=== PATIENT | female | born 1950 | race Caucasian/White ===

== ENCOUNTER 2021-07-28 19:12 | Inpatient (IN) | payer MEDICARE ==
[2021-07-28 19:40] LABS: #Monocytes 0.5 10x3/uL (0.0-1.1); #Neutrophils 8.1 10x3/uL (1.5-8.4); %Basophils 0.3 % (0.0-2.0); %Eosinophils 0.1 % (0.0-6.0); %Lymphocytes 6.1 % (18.0-47.0); %Monocytes 5.2 % (0.0-10.0); %Neutrophils 88.1 % (40.0-75.0); Hemoglobin 13.3 g/dL (12.0-15.5); Mean Corpuscular HGB CONC 33.7 g/dL (32.0-36.0); Mean Corpuscular Hemoglobin 32.2 pg (27.0-33.0); Mean Corpuscular Volume 95.6 fl (81.6-98.3); Mean Platelet Volume 10.3 fl (7.4-10.4); Platelet Count 285 10x3/uL (150-450); RBC Distribution Width 12.7 % (11.5-14.5); Red Blood Cell (RBC) Count 4.13 10x6/uL (3.90-5.03); White Blood Cell (WBC) Count 9.2 10x3/uL (3.5-10.5)
[2021-07-28] MEDS ORDERED: levETIRAcetam in NS 200 ML ONE (19:46)
[2021-07-28] MEDS ORDERED: Fentanyl 100 MCG/2 ML VIAL ONE (19:46)
[2021-07-28] MEDS ORDERED: Ondansetron PF 4 MG/2 ML Vial ONE (19:46)
[2021-07-28 19:50] LABS: ALT (SGPT) 11 U/L (8-55); AST (SGOT) 21 U/L (5-34); Albumin 4.6 g/dL (3.4-4.8); Alkaline Phosphatase 79 U/L (40-110); Anion Gap 17 mmol/L (10-20); BUN (Urea Nitrogen) 10 mg/dL (9.8-20.1); Bilirubin, Total 0.4 mg/dL (0.2-1.2); Calc. Creatinine Clearance 0 mL/min (70-130); Calcium 9.5 mg/dL (7.8-10.44); Carbon Dioxide 24 mmol/L (23-31); Chloride 96 mmol/L (98-107); Globulin 3.3 g/dL (2.4-3.5); Glucose 137 mg/dL (83-110); Potassium 3.6 mmol/L (3.5-5.1); Protein, Total 7.9 g/dL (5.8-8.1); Sodium 133 mmol/L (136-145)
[2021-07-28] MEDS ORDERED: Lidocaine 1% w/Epinephrine 1:100K 20 ML VIAL ONE (21:26)
[2021-07-28] MEDS ORDERED: Bacitracin 1 PK ONE (21:26)
[2021-07-28] MEDS ORDERED: diphenhydrAMINE 50 MG/ML VIAL ONE (22:10)
[2021-07-28] MEDS ORDERED: Metoclopramide HCl 10 MG/2 ML VIAL ONE (22:11)
[2021-07-28] MEDS ORDERED: Lorazepam 2 MG/ML VIAL ONE (23:10)
[2021-07-28] MEDS ORDERED: Ondansetron PF 4 MG/2 ML Vial IVP PRN (23:49)
[2021-07-28] MEDS ORDERED: Acetaminophen 650 MG Suppository PR PRN (23:49)
[2021-07-28] MEDS ORDERED: Lorazepam 2 MG/ML VIAL SLOW IVP PRN (23:50)
[2021-07-29 00:52] LABS: SARS-CoV-2 NAA Rapid Test Not Detected (NotDetected)
[2021-07-29] MEDS: Dextrose 5 % And 0.9 % NaCl 1,000 ML IV SCH ×2 (01:45→12:13)
[2021-07-29] MEDS: Potassium Chloride 20 MEQ in Premix Bag 1 BAG IVPB SCH ×2 (02:40→05:37)
[2021-07-29] MEDS: Thiamine HCl 200 MG/2 ML VIAL SLOW IVP SCH (02:43)
[2021-07-29 05:12] LABS: #Monocytes 0.9 10x3/uL (0.0-1.1); #Neutrophils 6.9 10x3/uL (1.5-8.4); %Basophils 0.2 % (0.0-2.0); %Eosinophils 0.1 % (0.0-6.0); %Lymphocytes 8.8 % (18.0-47.0); %Monocytes 10.9 % (0.0-10.0); %Neutrophils 79.9 % (40.0-75.0); Hemoglobin 11.9 g/dL (12.0-15.5); Mean Corpuscular HGB CONC 34.6 g/dL (32.0-36.0); Mean Corpuscular Hemoglobin 32.2 pg (27.0-33.0); Mean Corpuscular Volume 93.2 fl (81.6-98.3); Mean Platelet Volume 10.4 fl (7.4-10.4); Platelet Count 250 10x3/uL (150-450); RBC Distribution Width 12.7 % (11.5-14.5); Red Blood Cell (RBC) Count 3.69 10x6/uL (3.90-5.03); White Blood Cell (WBC) Count 8.6 10x3/uL (3.5-10.5)
[2021-07-29 05:40] VITALS: BMI 24.4
[2021-07-29 05:59] LABS: Anion Gap 13 mmol/L (10-20); BUN (Urea Nitrogen) 10 mg/dL (9.8-20.1); CK (CPK) 319 U/L (29-168); Calc. Creatinine Clearance 74 mL/min (70-130); Calcium 9.1 mg/dL (7.8-10.44); Carbon Dioxide 24 mmol/L (23-31); Chloride 102 mmol/L (98-107); Glucose 112 mg/dL (83-110); Magnesium 2.1 mg/dL (1.6-2.6); Sodium 135 mmol/L (136-145)
[2021-07-29] MEDS: Enoxaparin Sodium 40 MG/0.4 ML SYRINGE SC SCH (08:50)
[2021-07-29] MEDS: Famotidine/PF 20 mg/2ml Vial SLOW IVP SCH ×2 (08:50→20:35)
[2021-07-29] MEDS: OXcarbazepine 300 MG TAB PO SCH ×2 (08:51→20:35)
[2021-07-29] MEDS: Folic Acid 1 MG TAB PO SCH (08:51)
[2021-07-29] MEDS ORDERED: levETIRAcetam 500 MG in Sodium Chloride 0.9% 100 ML IVPB SCH (09:00)
[2021-07-29] MEDS ORDERED: Dextrose 5 % And 0.9 % NaCl 1,000 ML IV SCH (14:13)
[2021-07-29 15:17] LABS: Bilirubin Neg (Negative); Blood, Urine 10 (Negative); Clarity Clear (Clear); Glucose, Urine (Dipstick) Normal (Negative); Ketone, Urine 15 mg/dL (Negative); Leukocyte Negative (Negative); Nitrite Negative (Negative); Protein, Urine (Dipstick) 30 mg/dl (Neg-Trace); Specific Gravity, Urine 1.015 (1.002-1.036); Urobilinogen Normal mg/dL (Less than 2)
[2021-07-29 15:25] LABS: WBC/HPF 0-3 HPF (0-3)
[2021-07-29 15:26] LABS: Bacteria/HPF None Seen HPF (None Seen)
[2021-07-29] MEDS ORDERED: Magnevist 469MG/ML 20 ML VIAL ONE (15:34)
[2021-07-29] MEDS ORDERED: levETIRAcetam 500 MG/5 ML VIAL SLOW IVP SCH (18:00)
[2021-07-29] MEDS: levETIRAcetam in NS 1,000 MG in Premix Bag 1 BAG IVPB SCH (20:35)
[2021-07-30] MEDS: Thiamine HCl 200 MG/2 ML VIAL SLOW IVP SCH (03:15)
[2021-07-30 04:31] LABS: Anion Gap 14 mmol/L (10-20); BUN (Urea Nitrogen) 9 mg/dL (9.8-20.1); CK (CPK) 543 U/L (29-168); Calc. Creatinine Clearance 79 mL/min (70-130); Calcium 8.9 mg/dL (7.8-10.44); Carbon Dioxide 25 mmol/L (23-31); Chloride 103 mmol/L (98-107); Glucose 101 mg/dL (83-110); Magnesium 2.1 mg/dL (1.6-2.6); Potassium 4.1 mmol/L (3.5-5.1); Sodium 138 mmol/L (136-145)
[2021-07-30] MEDS: Levothyroxine Sodium 25 MCG TAB PO SCH (06:18)
[2021-07-30] MEDS: Famotidine/PF 20 mg/2ml Vial SLOW IVP SCH ×2 (09:07→21:21)
[2021-07-30] MEDS: levETIRAcetam in NS 1,000 MG in Premix Bag 1 BAG IVPB SCH ×2 (09:07→21:21)
[2021-07-30] MEDS: Folic Acid 1 MG TAB PO SCH (09:08)
[2021-07-30] MEDS: PARoxetine 20 MG TAB PO SCH (09:08)
[2021-07-30] MEDS: OXcarbazepine 300 MG TAB PO SCH ×2 (09:08→21:21)
[2021-07-30] MEDS: Cholecalciferol 1,000 UNITS (25 MCG) TAB PO SCH (09:09)
[2021-07-30] MEDS: Enoxaparin Sodium 40 MG/0.4 ML SYRINGE SC SCH (09:09)
[2021-07-30] MEDS ORDERED: hydrALAZINE 20 MG/ML VIAL SLOW IVP PRN (18:27)
[2021-07-30] MEDS ORDERED: Amlodipine 5 MG TAB PO SCH (18:30)
[2021-07-31] MEDS: Acetaminophen 325 MG TAB PO PRN (00:19)
[2021-07-31] MEDS ORDERED: traMADol HCl 50 MG TAB PO SCH (01:45)
[2021-07-31] MEDS: Thiamine HCl 200 MG/2 ML VIAL SLOW IVP SCH (03:25)
[2021-07-31 03:58] LABS: #Eosinphils 0.2 10x3/uL (0.0-0.5); #Monocytes 0.6 10x3/uL (0.0-1.1); #Neutrophils 3.1 10x3/uL (1.5-8.4); %Basophils 0.6 % (0.0-2.0); %Eosinophils 2.9 % (0.0-6.0); %Lymphocytes 24.4 % (18.0-47.0); %Monocytes 12.2 % (0.0-10.0); %Neutrophils 59.7 % (40.0-75.0); Hemoglobin 11.8 g/dL (12.0-15.5); Mean Corpuscular HGB CONC 34.4 g/dL (32.0-36.0); Mean Corpuscular Hemoglobin 32.5 pg (27.0-33.0); Mean Corpuscular Volume 94.5 fl (81.6-98.3); Mean Platelet Volume 10.3 fl (7.4-10.4); Platelet Count 235 10x3/uL (150-450); RBC Distribution Width 12.8 % (11.5-14.5); Red Blood Cell (RBC) Count 3.63 10x6/uL (3.90-5.03); White Blood Cell (WBC) Count 5.2 10x3/uL (3.5-10.5)
[2021-07-31 04:06] LABS: ALT (SGPT) 20 U/L (8-55); AST (SGOT) 30 U/L (5-34); Albumin 3.8 g/dL (3.4-4.8); Alkaline Phosphatase 63 U/L (40-110); Anion Gap 12 mmol/L (10-20); BUN (Urea Nitrogen) 10 mg/dL (9.8-20.1); Bilirubin, Total 0.4 mg/dL (0.2-1.2); Calc. Creatinine Clearance 79 mL/min (70-130); Calcium 9.1 mg/dL (7.8-10.44); Carbon Dioxide 27 mmol/L (23-31); Chloride 104 mmol/L (98-107); Globulin 2.7 g/dL (2.4-3.5); Glucose 105 mg/dL (83-110); Magnesium 1.9 mg/dL (1.6-2.6); Potassium 3.8 mmol/L (3.5-5.1); Protein, Total 6.5 g/dL (5.8-8.1); Sodium 139 mmol/L (136-145)
[2021-07-31] MEDS: Levothyroxine Sodium 25 MCG TAB PO SCH (06:26)
[2021-07-31] MEDS ORDERED: Morphine 2 MG/ML VIAL SLOW IVP SCH (06:45)
[2021-07-31] MEDS ORDERED: Cholecalciferol 1,000 UNITS (25 MCG) TAB ONE ×2 (07:58→07:59)
[2021-07-31] MEDS: OXcarbazepine 300 MG TAB PO SCH ×2 (08:30→21:08)
[2021-07-31] MEDS: Enoxaparin Sodium 40 MG/0.4 ML SYRINGE SC SCH (08:30)
[2021-07-31] MEDS: levETIRAcetam in NS 1,000 MG in Premix Bag 1 BAG IVPB SCH ×2 (08:30→21:07)
[2021-07-31] MEDS: Amlodipine 5 MG TAB PO SCH (08:31)
[2021-07-31] MEDS: PARoxetine 20 MG TAB PO SCH (08:31)
[2021-07-31] MEDS: Folic Acid 1 MG TAB PO SCH (08:31)
[2021-07-31] MEDS: Famotidine/PF 20 mg/2ml Vial SLOW IVP SCH ×2 (08:31→21:07)
[2021-07-31] MEDS: Cholecalciferol 1,000 UNITS (25 MCG) TAB PO SCH (08:32)
[2021-08-01] MEDS: Thiamine HCl 200 MG/2 ML VIAL SLOW IVP SCH (04:15)
[2021-08-01] MEDS: Acetaminophen 325 MG TAB PO PRN (04:16)
[2021-08-01 05:32] LABS: #Eosinphils 0.2 10x3/uL (0.0-0.5); #Monocytes 0.7 10x3/uL (0.0-1.1); #Neutrophils 3.8 10x3/uL (1.5-8.4); %Basophils 0.7 % (0.0-2.0); %Eosinophils 3.5 % (0.0-6.0); %Lymphocytes 18.3 % (18.0-47.0); %Monocytes 11.5 % (0.0-10.0); %Neutrophils 65.8 % (40.0-75.0); Hemoglobin 11.5 g/dL (12.0-15.5); Mean Corpuscular HGB CONC 33.3 g/dL (32.0-36.0); Mean Corpuscular Hemoglobin 32.4 pg (27.0-33.0); Mean Corpuscular Volume 97.2 fl (81.6-98.3); Mean Platelet Volume 10.7 fl (7.4-10.4); Platelet Count 239 10x3/uL (150-450); RBC Distribution Width 12.8 % (11.5-14.5); Red Blood Cell (RBC) Count 3.55 10x6/uL (3.90-5.03); White Blood Cell (WBC) Count 5.7 10x3/uL (3.5-10.5)
[2021-08-01 05:40] LABS: ALT (SGPT) 24 U/L (8-55); AST (SGOT) 27 U/L (5-34); Albumin 3.8 g/dL (3.4-4.8); Alkaline Phosphatase 63 U/L (40-110); Anion Gap 13 mmol/L (10-20); BUN (Urea Nitrogen) 16 mg/dL (9.8-20.1); Bilirubin, Total 0.2 mg/dL (0.2-1.2); Calc. Creatinine Clearance 77 mL/min (70-130); Calcium 9.5 mg/dL (7.8-10.44); Carbon Dioxide 29 mmol/L (23-31); Chloride 102 mmol/L (98-107); Globulin 2.8 g/dL (2.4-3.5); Glucose 103 mg/dL (83-110); Magnesium 1.9 mg/dL (1.6-2.6); Potassium 4.3 mmol/L (3.5-5.1); Protein, Total 6.6 g/dL (5.8-8.1); Sodium 140 mmol/L (136-145)
[2021-08-01] MEDS: Levothyroxine Sodium 25 MCG TAB PO SCH (06:32)
[2021-08-01] MEDS ORDERED: levETIRAcetam 500 MG TAB PO SCH (09:00)
[2021-08-01] MEDS: Amlodipine 5 MG TAB PO SCH (09:34)
[2021-08-01] MEDS: OXcarbazepine 300 MG TAB PO SCH (09:35)
[2021-08-01] MEDS: Cholecalciferol 1,000 UNITS (25 MCG) TAB PO SCH (09:35)
[2021-08-01] MEDS: PARoxetine 20 MG TAB PO SCH (09:36)
[2021-08-01] MEDS: Enoxaparin Sodium 40 MG/0.4 ML SYRINGE SC SCH (09:37)
[2021-08-01] MEDS: Famotidine/PF 20 mg/2ml Vial SLOW IVP SCH (09:38)
[2021-08-01] MEDS: Folic Acid 1 MG TAB PO SCH (09:39)
[2021-08-01 16:50] VITALS: BP 124/59; TEMP 97.2
[2021-08-01] MEDS ORDERED: Melatonin 3 MG TAB PO SCH (21:00)
== END 2021-08-01 16:10 | disposition short-term general hospital (02) | DRG 101 ==
LOC: CSHERS 19:12 → CSHICU 23:49 → UNDOADMIN 07-29 01:46 → CSHICU 07-29 01:46 → CSHTELE 07-31 15:14
PROVIDERS: ADMIT Student in an Organized Health Care Education/Training Program; ATTEND Family Medicine
PROC: 0HQ0XZZ Repair Scalp Skin, External Approach (ICD-10-PCS; principal; 2021-07-28)
DX: G40.909 Epilepsy, unspecified, not intractable, without status epilepticus (principal); M35.07 Sjogren syndrome with central nervous system involvement; K21.9 Gastro-esophageal reflux disease without esophagitis; Z20.822 Contact with and (suspected) exposure to COVID-19; E03.9 Hypothyroidism, unspecified; W19.XXXA Unspecified fall, initial encounter; E78.5 Hyperlipidemia, unspecified; M47.816 Spondylosis without myelopathy or radiculopathy, lumbar region; I10 Essential (primary) hypertension; M47.812 Spondylosis without myelopathy or radiculopathy, cervical region; F41.9 Anxiety disorder, unspecified; F32.A Depression, unspecified; S01.01XA Laceration without foreign body of scalp, initial encounter; Z72.89 Other problems related to lifestyle; Z90.49 Acquired absence of other specified parts of digestive tract; Z90.710 Acquired absence of both cervix and uterus
CPT/HCPCS: 36415; 70450; 70553; 71045; 72125; 72128; 72131; 80048; 80053; 81001; 82550; 83735; 84443; 85025; 93005; 94760; 96365; 96375; A9579; J1200; J1650; J1953; J2060; J2270; J2405; J2765; J3010; J3411; J3480; J3490; J7042; S0028; U0002

== ENCOUNTER 2022-06-29 16:52 | Observation (INO) | payer MEDICARE ==
[2022-06-29 17:43] LABS: #Monocytes 0.9 10x3/uL (0.0-1.1); #Neutrophils 5.6 10x3/uL (1.5-8.4); %Basophils 0.4 % (0.0-2.0); %Eosinophils 0.4 % (0.0-6.0); %Lymphocytes 19.1 % (18.0-47.0); %Monocytes 10.9 % (0.0-10.0); Hemoglobin 13.8 g/dL (12.0-15.5); Mean Corpuscular HGB CONC 31.9 g/dL (32.0-36.0); Mean Corpuscular Hemoglobin 31.6 pg (27.0-33.0); Mean Corpuscular Volume 98.9 fl (81.6-98.3); Mean Platelet Volume 10.6 fl (7.4-10.4); Platelet Count 313 10x3/uL (150-450); RBC Distribution Width 12.4 % (11.5-14.5); Red Blood Cell (RBC) Count 4.37 10x6/uL (3.90-5.03); White Blood Cell (WBC) Count 8.2 10x3/uL (3.5-10.5)
[2022-06-29 17:48] LABS: ALT (SGPT) 30 U/L (8-55); AST (SGOT) 35 U/L (5-34); Albumin 5.3 g/dL (3.4-4.8); Alkaline Phosphatase 106 U/L (40-110); Anion Gap 29 mmol/L (10-20); BUN (Urea Nitrogen) 8 mg/dL (9.8-20.1); Bilirubin, Total 0.5 mg/dL (0.2-1.2); Calc. Creatinine Clearance 0 mL/min (70-130); Calcium 9.9 mg/dL (7.8-10.44); Carbon Dioxide 12 mmol/L (23-31); Chloride 92 mmol/L (98-107); Estimated GFR 73; Globulin 3.8 g/dL (2.4-3.5); Glucose 158 mg/dL (83-110); Potassium 3.8 mmol/L (3.5-5.1); Protein, Total 9.1 g/dL (5.8-8.1); Sodium 129 mmol/L (136-145)
[2022-06-29] MEDS ORDERED: Ondansetron PF 4 MG/2 ML Vial ONE (19:01)
[2022-06-29 19:23] LABS: Bilirubin Neg (Negative); Blood, Urine 25 (Negative); Clarity Clear (Clear); Glucose, Urine (Dipstick) 100 mg/dL (Negative); Ketone, Urine 15 mg/dL (Negative); Leukocyte Negative (Negative); Nitrite Negative (Negative); Protein, Urine (Dipstick) 100 mg/dl (Neg-Trace); Specific Gravity, Urine 1.015 (1.005-1.030); Urobilinogen Normal mg/dL (Less than 2)
[2022-06-29] MEDS ORDERED: Acetaminophen 500 MG TAB ONE (19:27)
[2022-06-29 19:33] LABS: RBC/HPF 0-3 HPF (0-3); WBC/HPF 0-3 HPF (0-3)
[2022-06-29 19:34] LABS: Bacteria/HPF Rare-Few HPF (None Seen); Squamous Epithelial 0-3 HPF (0-3)
[2022-06-29] MEDS ORDERED: Lorazepam 2 MG/ML VIAL ONE (19:35)
[2022-06-29] MEDS ORDERED: OXcarbazepine 300 MG TAB PO SCH (20:00)
[2022-06-29 20:22] LABS: Lactic Acid 8.6 mmol/L (0.5-2.2)
[2022-06-29 21:50] LABS: SARS-CoV-2 NAA Rapid Test Not Detected (NotDetected)
[2022-06-29] MEDS ORDERED: Ondansetron PF 4 MG/2 ML Vial IVP PRN (22:15)
[2022-06-29 22:38] VITALS: BMI 21.3
[2022-06-29 22:42] LABS: Magnesium 2.1 mg/dL (1.6-2.6)
[2022-06-29] MEDS: NS 0.9% w/ 20 MEQ KCL 1,000 ML/1,000 ML BAG IV SCH (23:05)
[2022-06-29] MEDS ORDERED: Lorazepam 2 MG/ML VIAL SLOW IVP PRN (23:37)
[2022-06-30 02:47] LABS: #Monocytes 0.6 10x3/uL (0.0-1.1); #Neutrophils 5.2 10x3/uL (1.5-8.4); %Basophils 0.2 % (0.0-2.0); %Lymphocytes 8.2 % (18.0-47.0); %Monocytes 9.3 % (0.0-10.0); %Neutrophils 82.1 % (40.0-75.0); Hemoglobin 10.7 g/dL (12.0-15.5); Mean Corpuscular HGB CONC 34.6 g/dL (32.0-36.0); Mean Corpuscular Volume 92.5 fl (81.6-98.3); Mean Platelet Volume 10.1 fl (7.4-10.4); Platelet Count 215 10x3/uL (150-450); RBC Distribution Width 12.3 % (11.5-14.5); Red Blood Cell (RBC) Count 3.34 10x6/uL (3.90-5.03); White Blood Cell (WBC) Count 6.3 10x3/uL (3.5-10.5)
[2022-06-30 03:06] LABS: Anion Gap 12 mmol/L (10-20); BUN (Urea Nitrogen) 6 mg/dL (9.8-20.1); Calc. Creatinine Clearance 79 mL/min (70-130); Carbon Dioxide 19 mmol/L (23-31); Chloride 101 mmol/L (98-107); Estimated GFR 93; Glucose 96 mg/dL (83-110); Potassium 4.4 mmol/L (3.5-5.1); Sodium 128 mmol/L (136-145)
[2022-06-30] MEDS: NS 0.9% w/ 20 MEQ KCL 1,000 ML/1,000 ML BAG IV SCH (05:34)
[2022-06-30] MEDS ORDERED: Azithromycin 500 MG in Sodium Chloride 0.9% 250 ML 250 ML IVPB SCH (09:00)
[2022-06-30] MEDS ORDERED: cefTRIAXone\\ROCEPHIN 2 GM in Sodium Chloride 0.9% 100 ML IVPB SCH (10:00)
[2022-06-30] MEDS ORDERED: Acetaminophen 325 MG TAB PO SCH (14:00)
== END 2022-06-30 15:30 | disposition home or self-care (01) ==
LOC: CSHERS 16:52 → CSHIMCU 22:23 → INTOOBSV 22:23
PROVIDERS: ADMIT Family Medicine; ATTEND Family Medicine
DX: G40.909 Epilepsy, unspecified, not intractable, without status epilepticus (principal); E87.20 Acidosis, unspecified; E03.9 Hypothyroidism, unspecified; I73.00 Raynaud's syndrome without gangrene; M35.07 Sjogren syndrome with central nervous system involvement; R10.30 Lower abdominal pain, unspecified; Z88.5 Allergy status to narcotic agent; Z90.89 Acquired absence of other organs; Z88.2 Allergy status to sulfonamides; Z79.899 Other long term (current) drug therapy; R00.0 Tachycardia, unspecified
CPT/HCPCS: 51701; 71045; 80048; 80053; 82962; 83605; 83735; 85025 ×2; 87040; 87086; 93005; 94760 ×2; 94762; 95816; 95819; 95957; 96374; 96375; 99285; J0456; U0002; 36415; 36416; 81003; 81015; 96372; J0696; J1650; J2060; J2405; J3480; J3490; J7050

== ENCOUNTER 2022-09-29 08:37 | Inpatient (IN) | payer MEDICARE ==
[2022-09-29 09:26] LABS: #Eosinphils 0.1 10x3/uL (0.0-0.5); #Monocytes 0.5 10x3/uL (0.0-1.1); #Neutrophils 2.5 10x3/uL (1.5-8.4); %Basophils 0.5 % (0.0-2.0); %Eosinophils 1.9 % (0.0-6.0); %Lymphocytes 16.7 % (18.0-47.0); %Monocytes 13.8 % (0.0-10.0); %Neutrophils 66.8 % (40.0-75.0); Hemoglobin 12.2 g/dL (12.0-15.5); Mean Corpuscular HGB CONC 34.4 g/dL (32.0-36.0); Mean Corpuscular Hemoglobin 31.5 pg (27.0-33.0); Mean Corpuscular Volume 91.7 fl (81.6-98.3); Mean Platelet Volume 10.1 fl (7.4-10.4); Platelet Count 237 10x3/uL (150-450); RBC Distribution Width 12.4 % (11.5-14.5); Red Blood Cell (RBC) Count 3.87 10x6/uL (3.90-5.03); White Blood Cell (WBC) Count 3.8 10x3/uL (3.5-10.5)
[2022-09-29 10:06] LABS: CKMB 5.2 ng/mL (0-6.6)
[2022-09-29 10:07] LABS: ALT (SGPT) 22 U/L (8-55); AST (SGOT) 28 U/L (5-34); Albumin 4.7 g/dL (3.4-4.8); Alkaline Phosphatase 82 U/L (40-110); Anion Gap 16 mmol/L (10-20); BUN (Urea Nitrogen) 13 mg/dL (9.8-20.1); Bilirubin, Total 0.4 mg/dL (0.2-1.2); Calc. Creatinine Clearance 0 mL/min (70-130); Calcium 9.3 mg/dL (7.8-10.44); Carbon Dioxide 23 mmol/L (23-31); Chloride 92 mmol/L (98-107); Estimated GFR 89; Globulin 2.9 g/dL (2.4-3.5); Glucose 106 mg/dL (83-110); Potassium 4.5 mmol/L (3.5-5.1); Protein, Total 7.6 g/dL (5.8-8.1); Sodium 126 mmol/L (136-145)
[2022-09-29 10:38] LABS: Bilirubin Neg (Negative); Blood, Urine Negative (Negative); Clarity Clear (Clear); Glucose, Urine (Dipstick) Normal (Negative); Ketone, Urine Negative (Negative); Leukocyte Negative (Negative); Nitrite Negative (Negative); Protein, Urine (Dipstick) Negative (Neg-Trace); Urobilinogen Normal mg/dL (Less than 2)
[2022-09-29 11:02] LABS: Bacteria/HPF Rare-Few HPF (None Seen); CAUTI Indications for Culture Alt mental st,lethar; RBC/HPF None Seen HPF (0-3); Squamous Epithelial 0-3 HPF (0-3); WBC/HPF 0-3 HPF (0-3)
[2022-09-29 11:03] LABS: Urine Culture Reflex No No
[2022-09-29] MEDS ORDERED: Acetaminophen 500 MG TAB ONE (12:50)
[2022-09-29] MEDS ORDERED: Ondansetron PF 4 MG/2 ML Vial IVP PRN (14:03)
[2022-09-29] MEDS ORDERED: Acetaminophen 325 MG TAB PO PRN (14:03)
[2022-09-29] MEDS ORDERED: Acetaminophen 325 MG TAB ONE (17:07)
[2022-09-29] MEDS: Sodium Chloride 1 GM TAB PO SCH ×2 (18:36→21:12)
[2022-09-29] MEDS ORDERED: OXcarbazepine 300 MG TAB PO SCH (21:00)
[2022-09-29 21:03] VITALS: BMI 23.8
[2022-09-29] MEDS: Ibuprofen 600 MG TAB PO PRN (23:15)
[2022-09-30 04:57] LABS: Anion Gap 10 mmol/L (10-20); BUN (Urea Nitrogen) 13 mg/dL (9.8-20.1); Calc. Creatinine Clearance 72 mL/min (70-130); Carbon Dioxide 26 mmol/L (23-31); Chloride 98 mmol/L (98-107); Estimated GFR 86; Glucose 104 mg/dL (83-110); Potassium 4.3 mmol/L (3.5-5.1); Sodium 130 mmol/L (136-145)
[2022-09-30 05:04] LABS: #Eosinphils 0.1 10x3/uL (0.0-0.5); #Monocytes 0.5 10x3/uL (0.0-1.1); #Neutrophils 1.8 10x3/uL (1.5-8.4); %Eosinophils 2.6 % (0.0-6.0); %Neutrophils 57.4 % (40.0-75.0); Hemoglobin 11.5 g/dL (12.0-15.5); Mean Corpuscular HGB CONC 34.4 g/dL (32.0-36.0); Mean Corpuscular Hemoglobin 31.8 pg (27.0-33.0); Mean Corpuscular Volume 92.3 fl (81.6-98.3); Mean Platelet Volume 10.1 fl (7.4-10.4); Platelet Count 214 10x3/uL (150-450); RBC Distribution Width 12.6 % (11.5-14.5); Red Blood Cell (RBC) Count 3.62 10x6/uL (3.90-5.03); White Blood Cell (WBC) Count 3.1 10x3/uL (3.5-10.5)
[2022-09-30] MEDS: Levothyroxine Sodium 25 MCG TAB PO SCH (06:12)
[2022-09-30] MEDS ORDERED: PAROXETINE HCL 30 MG PO SCH (09:00)
[2022-09-30] MEDS ORDERED: OXcarbazepine 300 MG TAB PO SCH ×4 (09:00→21:00)
[2022-09-30] MEDS ORDERED: Estradiol 0.05mg/24 Hour Patch (Weekly) TD SCH (09:00)
[2022-09-30] MEDS: Sodium Chloride 1 GM TAB PO SCH ×3 (09:16→20:53)
[2022-09-30] MEDS: Ibuprofen 600 MG TAB PO PRN ×2 (09:18→16:58)
[2022-09-30] MEDS: OXcarbazepine 300 MG TAB PO SCH (21:01)
[2022-09-30] MEDS: Divalproex Sodium 250 MG (DR) TAB PO SCH (21:02)
[2022-10-01] MEDS: Levothyroxine Sodium 25 MCG TAB PO SCH (06:12)
[2022-10-01 08:04] LABS: #Eosinphils 0.1 10x3/uL (0.0-0.5); #Monocytes 0.6 10x3/uL (0.0-1.1); #Neutrophils 2.5 10x3/uL (1.5-8.4); %Basophils 0.2 % (0.0-2.0); %Lymphocytes 21.6 % (18.0-47.0); %Monocytes 13.7 % (0.0-10.0); %Neutrophils 62.3 % (40.0-75.0); Hemoglobin 11.9 g/dL (12.0-15.5); Mean Corpuscular Hemoglobin 31.6 pg (27.0-33.0); Mean Corpuscular Volume 92.8 fl (81.6-98.3); Platelet Count 229 10x3/uL (150-450); RBC Distribution Width 12.7 % (11.5-14.5); Red Blood Cell (RBC) Count 3.77 10x6/uL (3.90-5.03)
[2022-10-01 08:21] LABS: Anion Gap 14 mmol/L (10-20); BUN (Urea Nitrogen) 14 mg/dL (9.8-20.1); Calc. Creatinine Clearance 78 mL/min (70-130); Calcium 8.8 mg/dL (7.8-10.44); Carbon Dioxide 23 mmol/L (23-31); Chloride 99 mmol/L (98-107); Estimated GFR 92; Glucose 102 mg/dL (83-110); Potassium 4.6 mmol/L (3.5-5.1); Sodium 131 mmol/L (136-145)
[2022-10-01] MEDS: OXcarbazepine 300 MG TAB PO SCH (09:31)
[2022-10-01] MEDS: Divalproex Sodium 250 MG (DR) TAB PO SCH (09:32)
[2022-10-01] MEDS: Sodium Chloride 1 GM TAB PO SCH (09:34)
[2022-10-01 12:12] VITALS: BP 125/77; TEMP 98.3
== END 2022-10-01 13:33 | disposition home or self-care (01) | DRG 645 ==
LOC: CSHERS 08:37 → INTOOBSV 17:14 → CSHERHOLD 17:14 → CSHTELE 22:32 → OBSVTOIN 09-30 11:43
PROVIDERS: ADMIT Family Medicine; ATTEND Family Medicine
DX: E22.2 Syndrome of inappropriate secretion of antidiuretic hormone (principal); G40.909 Epilepsy, unspecified, not intractable, without status epilepticus; E03.9 Hypothyroidism, unspecified; F32.A Depression, unspecified; Z88.5 Allergy status to narcotic agent; Z88.2 Allergy status to sulfonamides; Z88.8 Allergy status to other drugs, medicaments and biological substances; Z79.899 Other long term (current) drug therapy; Z98.890 Other specified postprocedural states; Z90.710 Acquired absence of both cervix and uterus
CPT/HCPCS: 36415; 70450; 80048; 80053; 81001; 82550; 82553; 84443; 84484; 85025; 93005; 93880; G0378

== ENCOUNTER 2022-11-22 09:21 | Observation (INO) | payer MEDICARE ==
[2022-11-22] MEDS ORDERED: Nitroglycerin 2% Ointment 1 INCH/1 GM Packet TOP ONE (09:22)
[2022-11-22 10:07] LABS: #Eosinphils 0.1 10x3/uL (0.0-0.5); #Monocytes 0.5 10x3/uL (0.0-1.1); #Neutrophils 2.6 10x3/uL (1.5-8.4); %Basophils 0.5 % (0.0-2.0); %Eosinophils 1.3 % (0.0-6.0); %Lymphocytes 16.3 % (18.0-47.0); %Monocytes 13.6 % (0.0-10.0); %Neutrophils 68.3 % (40.0-75.0); Hematocrit 34.6 % (34.9-44.5); Hemoglobin 11.9 g/dL (12.0-15.5); Mean Corpuscular HGB CONC 34.4 g/dL (32.0-36.0); Platelet Count 288 10x3/uL (150-450); RBC Distribution Width 12.6 % (11.5-14.5); Red Blood Cell (RBC) Count 3.72 10x6/uL (3.90-5.03); White Blood Cell (WBC) Count 3.8 10x3/uL (3.5-10.5)
[2022-11-22 10:28] LABS: ALT (SGPT) 13 U/L (8-55); AST (SGOT) 18 U/L (5-34); Albumin 4.3 g/dL (3.4-4.8); Alkaline Phosphatase 72 U/L (40-110); Anion Gap 13 mmol/L (10-20); BUN (Urea Nitrogen) 13 mg/dL (9.8-20.1); Bilirubin, Total 0.5 mg/dL (0.2-1.2); CK (CPK) 91 U/L (29-168); Calc. Creatinine Clearance 0 mL/min (70-130); Calcium 9.2 mg/dL (7.8-10.44); Carbon Dioxide 25 mmol/L (23-31); Chloride 94 mmol/L (98-107); Estimated GFR 91; Globulin 2.5 g/dL (2.4-3.5); Glucose 108 mg/dL (83-110); Lipase 31 U/L (8-78); Potassium 4.6 mmol/L (3.5-5.1); Protein, Total 6.8 g/dL (5.8-8.1); Sodium 127 mmol/L (136-145); Troponin I 0.058 ng/mL (< 0.028)
[2022-11-22] MEDS ORDERED: Acetaminophen 500 MG TAB ONE (11:16)
[2022-11-22 11:49] LABS: Troponin I 0.075 ng/mL (< 0.028)
[2022-11-22] MEDS ORDERED: Metoprolol Tartrate 5 MG/5 ML VIAL ONE (12:24)
[2022-11-22] MEDS ORDERED: Aspirin Chewable 81 MG TAB ONE (12:24)
[2022-11-22] MEDS ORDERED: Acetaminophen 650 MG Suppository PR PRN (13:58)
[2022-11-22] MEDS ORDERED: Ondansetron PF 4 MG/2 ML Vial IVP PRN (13:58)
[2022-11-22] MEDS ORDERED: Ondansetron ODT 4 MG TAB PO PRN (13:58)
[2022-11-22] MEDS ORDERED: Guaifenesin DM 100-10/5 ML UDCUP PO PRN (13:58)
[2022-11-22] MEDS ORDERED: Acetaminophen 325 MG TAB PO PRN (13:58)
[2022-11-22] MEDS ORDERED: Senokot S 8.6-50 MG TAB PO PRN (13:58)
[2022-11-22] MEDS ORDERED: Amlodipine 5 MG TAB PO SCH (14:00)
[2022-11-22] MEDS ORDERED: Meclizine HCl 25 MG TAB PO PRN (14:17)
[2022-11-22 14:38] LABS: Troponin I 0.063 ng/mL (< 0.028)
[2022-11-22 16:23] LABS: Bilirubin Neg (Negative); Blood, Urine Negative (Negative); Clarity Clear (Clear); Glucose, Urine (Dipstick) Normal (Negative); Ketone, Urine Negative (Negative); Leukocyte Negative (Negative); Nitrite Negative (Negative); Protein, Urine (Dipstick) Negative (Neg-Trace); Urobilinogen Normal mg/dL (Less than 2)
[2022-11-22 16:40] LABS: Bacteria/HPF Rare-Few HPF (None Seen); CAUTI Indications for Culture Alt mental st,lethar; RBC/HPF None Seen HPF (0-3); Squamous Epithelial 0-3 HPF (0-3); WBC/HPF 0-3 HPF (0-3)
[2022-11-22 16:42] LABS: Urine Culture Reflex No No
[2022-11-22 18:07] LABS: Troponin I 0.067 ng/mL (< 0.028)
[2022-11-22 18:50] VITALS: BMI 24.3
[2022-11-22 19:01] VITALS: BP 143/70; TEMP 98
[2022-11-22] MEDS ORDERED: Sodium Chloride 1 GM TAB PO SCH (21:00)
[2022-11-23] MEDS ORDERED: Amlodipine 5 MG TAB PO SCH (09:00)
== END 2022-11-22 19:41 | disposition home or self-care (01) ==
LOC: CSHERS 09:21 → CSHTELE 12:07
PROVIDERS: ADMIT Hospitalist; ATTEND Hospitalist
DX: R03.0 Elevated blood-pressure reading, without diagnosis of hypertension (principal); R79.89 Other specified abnormal findings of blood chemistry; E22.2 Syndrome of inappropriate secretion of antidiuretic hormone; G40.909 Epilepsy, unspecified, not intractable, without status epilepticus; E03.9 Hypothyroidism, unspecified; I73.00 Raynaud's syndrome without gangrene; F32.A Depression, unspecified; R42 Dizziness and giddiness; Z88.8 Allergy status to other drugs, medicaments and biological substances; Z88.5 Allergy status to narcotic agent; Z88.2 Allergy status to sulfonamides; Z79.890 Hormone replacement therapy; Z79.899 Other long term (current) drug therapy
CPT/HCPCS: 80053; 81001; 82550; 83690; 83880; 84484 ×2; 85025; 93005; 93306; 96374; 99285; G0378 ×2; 36415

== ENCOUNTER 2022-12-02 14:37 | Emergency (ER) | payer MEDICARE ==
[2022-12-02 15:26] LABS: #Monocytes 0.3 10x3/uL (0.0-1.1); #Neutrophils 4.3 10x3/uL (1.5-8.4); %Basophils 0.4 % (0.0-2.0); %Eosinophils 0.8 % (0.0-6.0); %Lymphocytes 9.9 % (18.0-47.0); %Monocytes 5.8 % (0.0-10.0); %Neutrophils 82.7 % (40.0-75.0); Hematocrit 39.5 % (34.9-44.5); Hemoglobin 13.6 g/dL (12.0-15.5); Mean Corpuscular HGB CONC 34.4 g/dL (32.0-36.0); Mean Corpuscular Hemoglobin 32.2 pg (27.0-33.0); Mean Corpuscular Volume 93.4 fl (81.6-98.3); Mean Platelet Volume 10.5 fl (7.4-10.4); Platelet Count 234 10x3/uL (150-450); RBC Distribution Width 12.3 % (11.5-14.5); Red Blood Cell (RBC) Count 4.23 10x6/uL (3.90-5.03); White Blood Cell (WBC) Count 5.1 10x3/uL (3.5-10.5)
[2022-12-02] MEDS ORDERED: Lorazepam 2 MG/ML VIAL ONE (15:26)
[2022-12-02 15:37] LABS: ALT (SGPT) 14 U/L (8-55); AST (SGOT) 24 U/L (5-34); Alkaline Phosphatase 85 U/L (40-110); Anion Gap 18 mmol/L (10-20); BUN (Urea Nitrogen) 12 mg/dL (9.8-20.1); Bilirubin, Total 0.7 mg/dL (0.2-1.2); Calc. Creatinine Clearance 0 mL/min (70-130); Carbon Dioxide 22 mmol/L (23-31); Chloride 97 mmol/L (98-107); Estimated GFR 89; Globulin 3.3 g/dL (2.4-3.5); Glucose 125 mg/dL (83-110); Potassium 4.3 mmol/L (3.5-5.1); Protein, Total 8.3 g/dL (5.8-8.1); Sodium 133 mmol/L (136-145)
[2022-12-02 15:43] LABS: Troponin I 0.053 ng/mL (< 0.028)
== END 2022-12-02 18:41 | disposition home or self-care (01) ==
LOC: CSHERS 14:37
DX: R07.89 Other chest pain (principal); R00.2 Palpitations; E03.9 Hypothyroidism, unspecified
CPT/HCPCS: 71045; 80053; 84484; 85025; 93005; 96374; J2060